=== PATIENT | male | born 1940 | race Caucasian/White ===

== ENCOUNTER → 2016-08-25 | Outpatient (CLI) | payer MEDICARE, BC ==
[~2016-08-25] MED LIST: ALLEGRA30 MG PO; GOOD NEIGHBOR P81 MG PO; HCTZ; SYNTHROID0.05 MG PO; ZOVIRAX51 TP; vitorin
== END ==
LOC: BHSO 09:56
DX: F41.1 Generalized anxiety disorder (principal)

== ENCOUNTER → 2017-01-14 | Outpatient (CLI) | payer MEDICARE, BC | LOC: BHSO 10:06 | DX: F41.1 Generalized anxiety disorder (principal) ==

== ENCOUNTER → 2017-05-14 | Outpatient (CLI) | payer MEDICARE, BC | LOC: BHSO 10:03 | DX: F41.1 Generalized anxiety disorder (principal) | CPT/HCPCS: G0463 ==

== ENCOUNTER → 2017-08-24 | Outpatient (CLI) | payer MEDICARE, BC | LOC: COL.LAB 11:13 | DX: Z01.812 Encounter for preprocedural laboratory examination (principal) ==

== ENCOUNTER → 2017-10-15 | Outpatient (CLI) | payer MEDICARE, BC | LOC: BHSO 11:14 | DX: F33.42 Major depressive disorder, recurrent, in full remission (principal) | CPT/HCPCS: G0463 ==

== ENCOUNTER → 2018-03-24 | Outpatient (CLI) | payer MEDICARE, BC | LOC: BHSO 08:33 | DX: F33.42 Major depressive disorder, recurrent, in full remission (principal) | CPT/HCPCS: G0463 ==

== ENCOUNTER → 2018-09-13 | Outpatient (CLI) | payer MEDICARE, BC | LOC: BHSO 07:58 | DX: F33.42 Major depressive disorder, recurrent, in full remission (principal) | CPT/HCPCS: G0463 ==

== ENCOUNTER 2019-03-02 08:30 | Outpatient (RCR) | payer MEDICARE, BC ==
[2019-02-16 14:40] VITALS: BP 155/80; PULSE 71; TEMP 99.2
[2019-02-16 15:55] VITALS: BP 136/63; PULSE 74; TEMP 99.6
[2019-02-17 10:39] VITALS: BP 157/75; PULSE 60; TEMP 98.6
[2019-02-18 08:52] VITALS: BP 114/67; PULSE 65; TEMP 97.8
[2019-02-19 09:04] VITALS: PULSE 74; TEMP 98.1
[2019-02-20 08:44] VITALS: BP 119/56; PULSE 84; TEMP 97.9
[2019-02-20 08:52] LABS: HEMATOCRIT 38.6 % (42.0-52.0); HEMOGLOBIN 12.4 g/dl (13.5-18.0); MEAN CELL VOLUME 89 fl (80.0-100.0); MEAN CORPUSCULAR HEMOGLOBIN 29 pg (27.0-31.0); MEAN CORPUSCULAR HGB CONC 32 g/dl (33.0-37.0); MEAN PLATELET VOLUME 9.7 fl (7.4-10.4); PLATELET COUNT 283 K/mm3 (130-400); RED BLOOD COUNT 4.32 M/mm3 (4.20-5.60); REDCELL DISTRIBUTION WIDTH-CV 13.2 % (11.5-14.5)
[2019-02-20 09:04] LABS: ALBUMIN 3.3 gm/dL (3.5-5.0); BILIRUBIN,TOTAL 0.7 mg/dL (0.0-1.0); C-REACTIVE PROTEIN 2.6 mg/dL (0.0-0.9); CALCIUM 8.7 mg/dL (8.4-10.2); CREATININE, serum 1.06 (0.66-1.25); POTASSIUM 3.4 mmol/L (3.4-5.0); TOTAL PROTEIN 6.3 gm/dL (6.4-8.2)
[2019-02-20 09:34] LABS: ERYTHROCYTE SEDIMENTATION RATE 13 mm/hr (0-30)
[2019-02-21 10:45] VITALS: BP 129/85; PULSE 70; TEMP 98.2
--- NOTE | 2019-02-21 10:45 | NUR ---
Daptomycin 500 mg IV was administered over 3-5 minutes at 1045 Invanz 1 gm IV in 100 ml NS was administered by pump over 30 minutes starting at 1050.
[2019-02-22 09:02] VITALS: BP 72/54; PULSE 122; TEMP 97.9
[2019-02-23 10:51] VITALS: BP 109/59; PULSE 71; TEMP 97.9
--- NOTE | 2019-02-24 08:50 | NUR ---
with sterile technique right upper arm PICC dressing change done with insertion site cleansed with ChloraPrep 1, chlorhexidine impregnated disc applied, skin prep, StatLock, and Tegaderm applied. No signs or symptoms of IV complications noted. No concerns voiced. Arm wrapped with Reji to protect catheter. Patient to continue with cares in the express unit.
[2019-02-24 09:11] VITALS: BP 148/109; PULSE 68; TEMP 97.7
[2019-02-25 08:30] VITALS: BP 115/55; PULSE 66; TEMP 98.1
[2019-02-26 08:09] VITALS: BP 103/61; PULSE 70; TEMP 98.1
[2019-02-27 08:49] VITALS: BP 108/59; PULSE 70; TEMP 98.2
[2019-02-27 09:03] LABS: HEMOGLOBIN 11.5 g/dl (13.5-18.0); MEAN CELL VOLUME 90 fl (80.0-100.0); MEAN CORPUSCULAR HEMOGLOBIN 29 pg (27.0-31.0); MEAN CORPUSCULAR HGB CONC 32 g/dl (33.0-37.0); MEAN PLATELET VOLUME 9.8 fl (7.4-10.4); PLATELET COUNT 291 K/mm3 (130-400); RED BLOOD COUNT 4.03 M/mm3 (4.20-5.60); REDCELL DISTRIBUTION WIDTH-CV 13.2 % (11.5-14.5)
[2019-02-27 09:22] LABS: HEMATOCRIT 36.3 % (42.0-52.0)
[2019-02-27 09:23] LABS: ALBUMIN 3.2 gm/dL (3.5-5.0); BILIRUBIN,TOTAL 0.9 mg/dL (0.0-1.0); C-REACTIVE PROTEIN 1.6 mg/dL (0.0-0.9); CALCIUM 8.7 mg/dL (8.4-10.2); CREATININE, serum 1.15 (0.66-1.25); POTASSIUM 3.7 mmol/L (3.4-5.0); TOTAL PROTEIN 6.2 gm/dL (6.4-8.2)
[2019-02-27 09:54] LABS: ERYTHROCYTE SEDIMENTATION RATE 14 mm/hr (0-30)
[2019-02-28 08:46] VITALS: BP 106/61; PULSE 66; TEMP 98.1
[2019-03-01 08:47] VITALS: BP 110/64; PULSE 69; TEMP 97.9
[~2019-03-02] VITALS: Ht 177.8 cm; Wt 85.6 kg
[~2019-03-02 08:30] MED LIST changes: +ALLEGRA 60MG TA60 MG PO; -ALLEGRA30 MG PO; +ASPIRIN E.C. 8181 MG PO; +CELLCEPT 5500 MG/TAB PO; +CEPHALEXIN500 M1 PO; +CIPRO 500MG TA500 MG PO; +CUBICIN 500MG500 MG IV; +DESYREL 100MG100 MG PO; +DOXYCYCLINE 10100 MG PO; -GOOD NEIGHBOR P81 MG PO; -HCTZ; +HCTZ 25MG TAB25 MG PO; +INVANZ INJ1 G/VIAL IV; +LIPITOR 80MG80 MG PO; +NORCO 325 MG-51 TAB PO; +PRIL40 PO; -SYNTHROID0.05 MG PO; +SYNTHROID0.05 MG/TA PO
[2019-03-02 08:47] VITALS: BP 104/54; PULSE 77; TEMP 98.1
[2019-03-02 10:45] VITALS: BP 137/79; PULSE 60; TEMP 97.4
--- NOTE | 2019-03-02 12:01 | NUR ---
Pt kerwin PICC removal well. Pt observed for 30 min after removal. RUE soft, dressing C/D/I. Pt discharged per ambulation.
== END 2019-03-02 12:07 | disposition home or self-care (01) ==
LOC: EUO 08:30
PROVIDERS: Internal Medicine Infectious Disease; Nurse Practitioner
DX: M06.9 Rheumatoid arthritis, unspecified (principal); L03.113 Cellulitis of right upper limb; D89.9 Disorder involving the immune mechanism, unspecified
CPT/HCPCS: C1751; C1892; J0878; J1335

== ENCOUNTER → 2019-03-14 | Outpatient (CLI) | payer MEDICARE, BC | LOC: BHSO 07:54 | DX: F33.42 Major depressive disorder, recurrent, in full remission (principal) | CPT/HCPCS: G0463 ==

== ENCOUNTER → 2019-03-22 | Outpatient (CLI) | payer MEDICARE, BC | LOC: COL.RAD 13:42 | DX: J98.11 Atelectasis (principal); R93.89 Abnormal findings on diagnostic imaging of other specified body structures; K80.20 Calculus of gallbladder without cholecystitis without obstruction; N20.0 Calculus of kidney; N28.1 Cyst of kidney, acquired; I25.10 Atherosclerotic heart disease of native coronary artery without angina pectoris ==

== ENCOUNTER 2019-03-31 10:15 | Outpatient (RCR) | payer MEDICARE, BC | END 2019-06-22 | disposition home or self-care (01) | LOC: WSOT | DX: L03.114 Cellulitis of left upper limb (principal) ==

== ENCOUNTER → 2019-04-13 | Outpatient (CLI) | payer MEDICARE, BC | LOC: ZCOL.LAB 15:33 | DX: L03.119 Cellulitis of unspecified part of limb (principal); B39.9 Histoplasmosis, unspecified ==

== ENCOUNTER 2021-04-28 17:57 | Inpatient (IN) | payer MEDICARE, BC ==
[~2021-04-28] VITALS: Ht 175.3 cm; Wt 75.2 kg
[2021-04-28] MEDS ORDERED: REMERON 15M15 MG/TA1 PO (19:47)
[2021-04-28] MEDS ORDERED: LEXAPRO 5MG5 MG PO (19:48)
[2021-04-28] MEDS ORDERED: METROCREAM CREA45 GM TP (19:49)
[2021-04-28] MEDS ORDERED: REVATIO20 MG PO (19:51)
[2021-04-28 20:58] VITALS: BP 107/60; PULSE 87; TEMP 99.3
[2021-04-28 22:34] LABS: BASO % 0.1 % (0.0-2.0); GRAN # 6.2 K/mm3 (1.4-6.5); GRAN % 83.6 % (42.2-75.2); HEMATOCRIT 43.1 % (42.0-52.0); HEMOGLOBIN 14.7 g/dl (13.5-18.0); LYMPH # 0.6 K/mm3 (1.2-3.4); LYMPH % 7.6 % (20.0-51.0); MEAN CELL VOLUME 86 fl (80.0-100.0); MEAN CORPUSCULAR HEMOGLOBIN 29 pg (27-31); MEAN CORPUSCULAR HGB CONC 34 g/dl (33.0-37.0); MEAN PLATELET VOLUME 10.2 fl (7.4-10.4); MONO # 0.6 K/mm3 (0.1-0.6); MONO % 7.8 % (1.7-9.3); PLATELET COUNT 342 K/mm3 (130-400); RED BLOOD COUNT 5.04 M/mm3 (4.20-5.60); REDCELL DISTRIBUTION WIDTH-CV 14.1 % (11.5-14.5)
[2021-04-28 22:59] LABS: CALCIUM 8.6 mg/dL (8.4-10.2); CREATININE, serum 2.31 mg/dL (0.72-1.25); MAGNESIUM 1.9 mg/dL (1.6-2.6)
[2021-04-29 00:50] VITALS: BP 126/60; PULSE 80; TEMP 98.8
--- NOTE | 2021-04-29 01:11 | NUR ---
PT ARRIVED TO FLOOR VIA WHEELCHAIR AT APPROXIMATELY 1900. PT IS ALERT AND ORIENTATED AND IS PLEASANT. ADMISSION COMPLETED. THIS RN PLACED IV IN RIGHT HAND. PATIENT ORIENTATED TO ROOM, VISITING HOURS AND POLICY. PATIENT WILL BE A STANDBY ASSIST DUE TO INCREASE SOB DURING EXERTION, NOTED WHEN AIDE ASSISTED PATIENT TO RESTROOM. PROGRESSED UP TO 3 L NC.
[2021-04-29 04:20] LABS: ARTERIAL BLD GAS O2 SATURATION 90.8 % (92-100); ARTERIAL BLOOD GAS BASE EXCESS -3.5 (-2-2); ARTERIAL BLOOD GAS HCO3 19.1 meq/L (22-26); ARTERIAL BLOOD GAS PCO2 28.5 mmHg (35-45); ARTERIAL BLOOD GAS PO2 59.1 mmHg (80-100); ARTERIAL BLOOD GAS pH 7.44 (7.35-7.45)
--- NOTE | 2021-04-29 04:37 | NUR ---
IV FLUIDS RUNNING AT 100 ML/HR DUE TO PT IV LOCATION AND VEIN BEING IN HAND.
--- NOTE | 2021-04-29 04:38 | NUR ---
THIS RN WAS NOTIFIED BY RT ABOUT PATIENT'S BLOOD GAS RESULTS. RT STATED SHE ALREADY CONTACTED GILLES ABOUT RESULTS, CURRENTLY OK WITH PATIENT REMAINING ON 5L NC. IF NEEDED, PATIENT WILL BE UPGRADED TO HIGH FLOW OXYGEN TO HELP. WILL CONTINUE TO MONITOR.
[2021-04-29 05:13] VITALS: BP 116/58; PULSE 69; TEMP 98.8
--- NOTE | 2021-04-29 06:17 | NUR ---
Pt had an ok night. Pt had to increase to 5L NC from RA overnight. Pt will be having a repeat ABG to see if pt needs to increase to a high flow NC to help with oxygen demands. Pt remained pleasant and took all medications as prescribed. Pt is laying in bed comfortably, all needs are met, call light in reach. Will give report to day shift nurse.
[2021-04-29 07:28] LABS: HEMOGLOBIN 13.7 g/dl (13.5-18.0); MEAN CELL VOLUME 85 fl (80.0-100.0); MEAN CORPUSCULAR HEMOGLOBIN 30 pg (27-31); MEAN CORPUSCULAR HGB CONC 35 g/dl (33.0-37.0); MEAN PLATELET VOLUME 10.3 fl (7.4-10.4); PLATELET COUNT 375 K/mm3 (130-400); REDCELL DISTRIBUTION WIDTH-CV 14.1 % (11.5-14.5)
[2021-04-29 07:46] LABS: C-REACTIVE PROTEIN 23.02 mg/dL (0.00-0.50); CALCIUM 8.3 mg/dL (8.4-10.2); CREATININE, serum 1.8 mg/dL (0.72-1.25)
[2021-04-29 07:49] LABS: POTASSIUM 2.9 mmol/L (3.5-4.5)
[2021-04-29 09:42] LABS: BAND 1 % (0-10); LYMPHOCYTE 11 % (20.0-51.0); NEUTROPHILS 84 % (42.0-75.2); PLATELET ESTIMATE NORMAL (NORMAL)
[2021-04-29 09:53] VITALS: BP 113/98; PULSE 91; TEMP 97.6
--- NOTE | 2021-04-29 10:07 | NUR ---
This RN entered the room to find the patient standing beside his bed, holding his hand straight out. Patient had pulled his IV out and was bleeding. Bleeding stopped quickly and not much blood was lost. This RN started a 20G in the patients left forearm. All medications were administered as ordered. Patient on potassium protocol. Patient sitting on side of the bed eating breakfast.
[2021-04-29 12:21] VITALS: BP 115/81; PULSE 85; TEMP 98.7
[2021-04-29 15:05] LABS: PARTIAL THROMBOPLASTIN TIME 30.7 SECONDS (26.0-37.0)
--- NOTE | 2021-04-29 15:31 | NUR ---
Patient D-dimer came back elevated, Dr. Mckenna notified and a heparin gtt was ordered. A 2nd IV was started in the patient's right forearm, this is where the heparin is infusing at 1,400 units/hr. Patient asked this RN, "Am I going to ?", this RN explained everything to the patient and provided reassurance.
[2021-04-29 15:35] VITALS: BP 115/66; PULSE 73; TEMP 98.7
--- NOTE | 2021-04-29 16:02 | NUR ---
Hydro Generation Manager attempted to contact patient by room phone and was unsucessful. SW then contacted patient's , Peggy (ph#[phone]) to discuss discharge planning. Patient lives in [place] with his and sees Dr. Munoz for primary care. Patient obtains medications from [facility] with no difficulties and does not normally use any DME. Patient is currently requiring six liters of oxygen but does not normally use it. Peggy reports that patient is normally independent with ADLS. Peggy also advised that she is patient's DPOA-HC. JENNIFER asked about discharge plan and Peggy reports she wants to know more about patient's plan of care before deciding on a discharge plan.
[2021-04-29 20:11] VITALS: BP 126/61; PULSE 66; TEMP 98.1
--- NOTE | 2021-04-29 22:00 | NUR ---
PT ASSESSMENT COMPLETED. PT IS PLEASANT AND COOPERATIVE. HEP XA WAS DRAWN BY THIS RN. THIS RN PAUSED THE HEP XA FOR 1 HOUR. WILL RESUME BACK AT 2230. POTASSIUM HUNG AND INFUSING WITH FLUIDS. WILL REDRAW IN MORNING. PT TOOK ALL MEDICATIONS, DENIES PAIN. OXYGEN VIA NC. CALL LIGHT IN REACH. WILL CONTINUE TO MONITOR.
[2021-04-30 00:33] VITALS: BP 128/59; PULSE 66; TEMP 97.3
[2021-04-30 03:42] VITALS: BP 111/72; PULSE 63; TEMP 97.4
[2021-04-30 03:45] LABS: ARTERIAL BLD GAS O2 SATURATION 94.8 % (92-100); ARTERIAL BLD GAS TCO2 CT 20.4; ARTERIAL BLOOD GAS BASE EXCESS -3.1 (-2-2); ARTERIAL BLOOD GAS HCO3 19.5 meq/L (22-26); ARTERIAL BLOOD GAS PCO2 29.5 mmHg (35-45); ARTERIAL BLOOD GAS pH 7.44 (7.35-7.45)
--- NOTE | 2021-04-30 06:07 | NUR ---
PT HAD AN OK NIGHT. PT SLEPT MOST OF NIGHT. HEPARIN RUNNING AT 12 ML/HR. LAB ANDI HEP XA LATE, STILL HAS NOT BEEN RECEIVED AT LAB. 10 BAGS OF POTASSIUM GIVEN DUE TO POTASSIUM OF 2.1. WILL CONTINUE TO MONITOR. PT REMAINS AT 5 L.
[2021-04-30 06:59] LABS: HEMOGLOBIN 13.8 g/dl (13.5-18.0); MEAN CELL VOLUME 88 fl (80.0-100.0); MEAN CORPUSCULAR HEMOGLOBIN 30 pg (27-31); MEAN CORPUSCULAR HGB CONC 34 g/dl (33.0-37.0); MEAN PLATELET VOLUME 10.4 fl (7.4-10.4); PLATELET COUNT 433 K/mm3 (130-400); RED BLOOD COUNT 4.68 M/mm3 (4.20-5.60); REDCELL DISTRIBUTION WIDTH-CV 14.5 % (11.5-14.5)
[2021-04-30 07:18] LABS: C-REACTIVE PROTEIN 12.43 mg/dL (0.00-0.50); CALCIUM 8.2 mg/dL (8.4-10.2); CREATININE, serum 1.18 mg/dL (0.72-1.25); MAGNESIUM 1.8 mg/dL (1.6-2.6); POTASSIUM 3.8 mmol/L (3.5-4.5)
[2021-04-30 08:08] LABS: BAND 3 % (0-10); LYMPHOCYTE 15 % (20.0-51.0); NEUTROPHILS 74 % (42.0-75.2); PLATELET ESTIMATE INCREASED (NORMAL)
[2021-04-30 08:19] VITALS: BP 135/76; PULSE 77; TEMP 97.7
[2021-04-30 09:49] LABS: COLLECTION METHOD CLEAN CATCH
[2021-04-30 09:59] LABS: MUCOUS Present (NOT PRESENT); PH 5 (5-8); SQUAMOUS EPITHELIAL None Seen /hpf (0-10); URINE APPEARANCE Clear (CLEAR/HAZY); URINE BACTERIA None Seen /hpf (NONE SEEN); URINE BILIRUBIN Negative (NEGATIVE); URINE BLOOD Negative (NEGATIVE); URINE COLOR Yellow (YELLOW); URINE GLUCOSE Negative (NEGATIVE); URINE KETONE Negative (NEGATIVE); URINE LEUKOCYTE ESTERASE Negative (NEGATIVE); URINE NITRATE Negative (NEGATIVE); URINE PROTEIN(semi-quant) 1+ (NEGATIVE); URINE RBC 0-2 /hpf (0-2); URINE UROBILINOGEN Negative (NEGATIVE)
--- NOTE | 2021-04-30 11:47 | NUR ---
Heparin infusion rate adjusted. BECCA Rodrigez cosigned. Scheduled medications given. Shift assessment performed. Patient currently requiring 6L of O2 via nasal cannula. States that he has had one episode of diarrhea today. Denies any N/V and is afebrile. Patient to get CT scan later this afternoon. Patient states that he has a slight headache, but states that it is at a manageable level and denies the need for an intervention at this time. Patient denies any further pain, discomfort, or further needs at this itme. Call light in reach.
[2021-04-30 13:21] VITALS: BP 99/70; PULSE 70; TEMP 97.4
--- NOTE | 2021-04-30 14:25 | NUR ---
Patient SpO2 decreased to 88% when sitting more upright and taking MDI. Patient was coughing with loose sounding npc. O2 increased to 7 lpm where SpO2 climbed back to 91.
--- NOTE | 2021-04-30 16:46 | NUR ---
Patient has had an ok day. Currently requiring 6L of O2 via nasal cannula. Heparin gtt DC'd per orders. Lovenox started. SCD's not in place. Patient is up and walking in room independently and SCD's would be a safety hazard. Patient denies any pain, discomfort, or further needs at this time. IV in left forearm DC's, catheter intact, no signs of phlebitis. VSS. Patient A&O. Call light in reach.
[2021-04-30 17:03] VITALS: BP 109/83; PULSE 72; TEMP 98.5
[2021-04-30 20:02] VITALS: BP 123/87; PULSE 65; TEMP 98.4
[2021-05-01 01:08] VITALS: BP 137/67; PULSE 58; TEMP 97.5
[2021-05-01 05:15] VITALS: BP 133/67; PULSE 94; TEMP 97.8
--- NOTE | 2021-05-01 05:36 | NUR ---
Resting quietly, denies pain, no c/o at this time, O2@6L per NC in use, call garcia w/i reach, ambulates w/o issue.
[2021-05-01 06:20] LABS: HEMATOCRIT 37.7 % (42.0-52.0); HEMOGLOBIN 12.9 g/dl (13.5-18.0); MEAN CELL VOLUME 86 fl (80.0-100.0); MEAN CORPUSCULAR HEMOGLOBIN 30 pg (27-31); MEAN CORPUSCULAR HGB CONC 34 g/dl (33.0-37.0); MEAN PLATELET VOLUME 9.9 fl (7.4-10.4); PLATELET COUNT 463 K/mm3 (130-400); RED BLOOD COUNT 4.38 M/mm3 (4.20-5.60); REDCELL DISTRIBUTION WIDTH-CV 14.5 % (11.5-14.5)
[2021-05-01 06:52] LABS: ALBUMIN 2.1 gm/dL (3.4-4.8); BILIRUBIN,TOTAL 0.5 mg/dL (0.2-1.2); C-REACTIVE PROTEIN 5.48 mg/dL (0.00-0.50); CALCIUM 8.1 mg/dL (8.4-10.2); CREATININE, serum 1.11 mg/dL (0.72-1.25); MAGNESIUM 1.7 mg/dL (1.6-2.6); POTASSIUM 3.8 mmol/L (3.5-4.5); TOTAL PROTEIN 5.6 gm/dL (6.2-8.1)
[2021-05-01 08:36] VITALS: BP 128/60; PULSE 66; TEMP 98.2
[2021-05-01 10:45] VITALS: BP 130/60; PULSE 69; TEMP 98.1
[2021-05-01 16:29] VITALS: BP 130/74; PULSE 66; TEMP 97.8
[2021-05-01 19:35] VITALS: BP 154/110; PULSE 65; TEMP 98.2
--- NOTE | 2021-05-01 20:52 | NUR ---
Patient sitting up in bed upon enter the room. Patient A/Ox4. Patient denies any pain or discomfort. Patient currently on 5L oxygen via NC. Patient reports some SOB with ambulation. No c/o SOB while at rest. Assisted patient to the bathroom to void. Stand-by assist provided. Ice water provided per patient request. All scheduled meds given per JUL. Call light in reach. Will continue to monitor.
[2021-05-02] VITALS (318 sets, daily range): BP systolic 118–145; BP diastolic 69–97; PULSE 62–77; TEMP 97.5–98.6; O2SAT 78–100
--- NOTE | 2021-05-02 06:10 | NUR ---
Patient remains on 5L oxygen via high flow NC most of night. Patient on 6L oxygen this morning. Patient resting in bed with eyes closed at this time. No acute distress noted. Call light in reach.
[2021-05-02 07:34] LABS: HEMATOCRIT 39.4 % (42.0-52.0); HEMOGLOBIN 13.1 g/dl (13.5-18.0); MEAN CELL VOLUME 88 fl (80.0-100.0); MEAN CORPUSCULAR HEMOGLOBIN 29 pg (27-31); MEAN CORPUSCULAR HGB CONC 33 g/dl (33.0-37.0); MEAN PLATELET VOLUME 10.3 fl (7.4-10.4); PLATELET COUNT 418 K/mm3 (130-400); RED BLOOD COUNT 4.48 M/mm3 (4.20-5.60); REDCELL DISTRIBUTION WIDTH-CV 14.5 % (11.5-14.5)
--- NOTE | 2021-05-02 07:56 | NUR ---
PLACED PT ON AIRVO 60L 71%. SPO2 90%. RN NOTIFIED
[2021-05-02 08:01] LABS: CREATININE, serum 0.95 mg/dL (0.72-1.25); POTASSIUM 4.1 mmol/L (3.5-4.5)
--- NOTE | 2021-05-02 09:00 | NUR ---
PT ALERT AND ORIENTED. LUNGS CLEAR TO UPPER LOBES AND DIMINISHED BASES BILATERALLY. PT ABLE TO AMBULATE TO RESTROOM, DESATURATIONS NOTED. RESPIRATORY THERAPY NOTIFIED, ENCOURAGE USE OF BEDSIDE COMMODE AND URINAL FOR TIME BEING TO PROMOTE ADEQUATE OXYGENATION. PT S1,S2 SOUNDS AUSUCLTATED. PT HAS 2+ PULSES IN ALL EXTREMITIES. PT BREAKFAST DELIVERED AND CALL LIGHT WITHIN REACH. PT ABLE TO EXPRESS NEEDS AND UNDERSTAND EDUCATION.
--- NOTE | 2021-05-02 09:03 | NUR ---
PT AMBULATED TO RESTROOM, SATURATION DOWN TO 80%. APPROXIMATELY 3 MINUTES TO RETURN TO 92% ON AIRVO AFTER RETURNING TO BED.
[2021-05-02 09:30] LABS: LYMPHOCYTE 9 % (20.0-51.0); NEUTROPHILS 84 % (42.0-75.2); PLATELET ESTIMATE INCREASED (NORMAL)
[2021-05-02 09:31] LABS: OVALOCYTES 1+
--- NOTE | 2021-05-02 10:00 | NUR ---
PT , ALIZA AND DAUGHTER CALLED FOR UPDATE. VERBAL CONSENT RECEIVED BY PT. PRIVACY CODE GIVEN FOR FUTURE UPDATES. PT STATUS UPDATED TO BEST OF ABILITY.
--- NOTE | 2021-05-02 11:19 | NUR ---
PT AMBULATED TO RESTROOM, DESATURATION TO 80%. APPROXIMATELY 5 MINUTES TO RETURN TO 90%. RESPIRATORY THERAPY NOTIFIED.
--- NOTE | 2021-05-02 13:00 | NUR ---
Patient transferred to ICU #5 from medical unit. Report received from BECCA Figueroa. Patient alert & oriented. Able to move self to ICU bed. On NRB mask for transfer & placed on AirVo 60L/80% upon arrival to ICU. Denies pain. Oriented to room & RN. Call light within reach. Will continue to monitor.
--- NOTE | 2021-05-02 13:07 | NUR ---
REPORT GIVEN TO JOANA ICU NURSE. PT TRANSFERRED TO ICU VIA BED, RESPIRATORY THERAPY CONTACTED FOR TRANSFER.
--- NOTE | 2021-05-02 15:19 | NUR ---
UPDATE CALLED TO MADYSON, DAUGHTER AND , LAIZA. BOTH STATED PRIOR COMMUNICATION HAD BE RECEIVED OF PT CHANGE OF UNIT.
--- NOTE | 2021-05-02 18:30 | NUR ---
Completed Zoom call with family. Patient alert, but had trouble hearing. Denies pain or sob. Continues on AirVo 60L/80%. 1899 - report to BECCA Noel.
[2021-05-03] VITALS (636 sets, daily range): BP systolic 93–142; BP diastolic 74–97; PULSE 53–85; TEMP 97.8–98.8; O2SAT 60–100
[2021-05-03 08:15] LABS: MEAN CELL VOLUME 87 fl (80.0-100.0); MEAN CORPUSCULAR HGB CONC 34 g/dl (33.0-37.0); MEAN PLATELET VOLUME 10.1 fl (7.4-10.4); RED BLOOD COUNT 5.16 M/mm3 (4.20-5.60); REDCELL DISTRIBUTION WIDTH-CV 14.5 % (11.5-14.5)
[2021-05-03 08:19] LABS: HEMOGLOBIN 15.2 g/dl (13.5-18.0); MEAN CORPUSCULAR HEMOGLOBIN 29 pg (27-31); PLATELET COUNT 581 K/mm3 (130-400)
[2021-05-03 08:35] LABS: ALBUMIN 2.3 gm/dL (3.4-4.8); BILIRUBIN,TOTAL 1.2 mg/dL (0.2-1.2); C-REACTIVE PROTEIN 9.06 mg/dL (0.00-0.50); CALCIUM 8.5 mg/dL (8.4-10.2); CREATININE, serum 0.97 mg/dL (0.72-1.25); MAGNESIUM 1.5 mg/dL (1.6-2.6); POTASSIUM 3.6 mmol/L (3.5-4.5); TOTAL PROTEIN 6.6 gm/dL (6.2-8.1)
[2021-05-03 09:22] LABS: BAND 1 % (0-10); NEUTROPHILS 89 % (42.0-75.2)
[2021-05-03 09:23] LABS: BURR CELLS 1+; OVALOCYTES 1+; PLATELET ESTIMATE INCREASED (NORMAL)
[2021-05-03 09:25] LABS: LYMPHOCYTE 7 % (20.0-51.0)
--- NOTE | 2021-05-03 10:00 | NUR ---
Family of Mr. Arrington came, his , son, and duaghter in law. Family spoke with Dr. Montelongo. See notes. Family is able to sit bedside with PT as they discuss the next steps in his care.
--- NOTE | 2021-05-03 12:00 | NUR ---
Family left PTs room and had a brief meeting with this nurse. Family stated that Mr. Arrington's wishes are that he is not to be intubated or put on BIPAP. With the PTs suspected decline and worsening confusion , that they would want him to remain comfortable with medication intervention such as morphine, but would like to be a DNR/DNI. At this time, the PT agrees with these measures. Physician has been notified about change in code status.
[2021-05-03 12:33] LABS: ARTERIAL BLD GAS O2 SATURATION 91.4 % (92-100); ARTERIAL BLOOD GAS HCO3 20.2 meq/L (22-26); ARTERIAL BLOOD GAS PCO2 27.9 mmHg (35-45); ARTERIAL BLOOD GAS pH 7.48 (7.35-7.45)
[2021-05-04] VITALS (657 sets, daily range): BP systolic 112–149; BP diastolic 62–92; PULSE 46–58; TEMP 97.2–98.1; O2SAT 70–100
[2021-05-04 03:39] LABS: HEMATOCRIT 37.9 % (42.0-52.0); MEAN CELL VOLUME 89 fl (80.0-100.0); MEAN CORPUSCULAR HGB CONC 33 g/dl (33.0-37.0); RED BLOOD COUNT 4.26 M/mm3 (4.20-5.60); REDCELL DISTRIBUTION WIDTH-CV 14.6 % (11.5-14.5)
[2021-05-04 03:42] LABS: HEMOGLOBIN 12.3 g/dl (13.5-18.0); MEAN CORPUSCULAR HEMOGLOBIN 29 pg (27-31); PLATELET COUNT 424 K/mm3 (130-400)
[2021-05-04 03:53] LABS: CALCIUM 7.9 mg/dL (8.4-10.2); CREATININE, serum 0.97 mg/dL (0.72-1.25); POTASSIUM 4.3 mmol/L (3.5-4.5)
[2021-05-04 04:35] LABS: BASOPHIL 3 % (0-2); EOSINOPHIL 1 % (0-4); HYPOCHROMIA 1+; LYMPHOCYTE 6 % (20.0-51.0); METAMYELOCYTE 1 % (0-0); NEUTROPHILS 81 % (42.0-75.2); PLATELET ESTIMATE INCREASED (NORMAL)
[2021-05-04 04:37] LABS: BURR CELLS 2+; OVALOCYTES 2+
--- NOTE | 2021-05-04 10:01 | NUR ---
REPORT RECEIVED FROM BECCA TEE. PT APPEARS TO BE SLEEPING AT THIS TIME. NO S/S DISCOMFORT. WEARING AIRVO AT 60L AND 80%; SPO2 AT 99%. 20 G IV IN LEFT FA. 20 G IV IN R FA. NO MEDICATION INFUSING AT THIS TIME. CODE STATUS REVIEVED; DNR\DNI. VSS.
--- NOTE | 2021-05-04 10:09 | NUR ---
PT ASSESSED AT THIS TIME. PT REPORTS NO PAIN OR DISCOMFORT. DOES FEEL SHORT OF BREATH WHEN TRYING TO SPEAK. WHEN PT TOOK AM PILLS HE DID HAVE SOME COUGHING WHEN SIPPING WATER. SPO2 DROPPED TO MID 80'S AND TOOK ABOUT 5 MINUTES TO RECOVER TO THE LOW 90'S. WILL KEEP PT NPO UNTIL PHYSICIAN ROUNDS. PT VOICES UNDERSTANDING FOR BEING KEPT NPO AT THIS TIME. PT STATES THAT HE FEELS VERY TIRED AND LETHARGIC. REQUESTS THAT LIGHTS BE TURNED DOWN SO THAT HE CAN GO BACK TO SLEEP.
--- NOTE | 2021-05-04 12:43 | NUR ---
THIS NURSE SPOKE WITH HOSPITALIST AND LET HIM KNOW THAT PT IS HAVING DIFFICULTY WITH SWALLOWING. OFTEN COUGHS WHEN TAKING SIPS OF WATER. PROVIDER WOULD LIKE PT KEPT NPO FOR NOW AND WILL ORDER SPEECH EVAL.
--- NOTE | 2021-05-04 16:16 | NUR ---
PT ASSISTED WITH SETTING UP HEADPHONES AND PHONE SO THAT HE IS ABLE TO SPEAK WITH AND HEAR FAMILY. PT/FAMILY ABLE TO SPEAK FOR APPROX. 10 MINUTES. PT STATES HE DOES NOT HAVE ANY PAIN AND DOES NOT OFFER ANY COMPLAINTS AT THIS TIME. URINAL OFFERED; PT DENIES NEEDING TO VOID.
--- NOTE | 2021-05-04 18:42 | NUR ---
PT GIVEN MOUTH SWABS AND MOUTH MOISTURIZER TO MOISTEN MOUTH DUE TO BEING NPO. PT WILL BE NPO UNTIL SPEECH IS ABLE TO DO A SWALLOW EVAL TOMORROW MORNING. PT HAS VERBALIZED UNDERSTANDING TO WHY HE IS NPO. PT'S SON, MARANDA IS AT THE BEDSIDE AT THIS TIME. THIS VISIT WAS OKAYED BY DR. LYNN. PT OFFERS NO COMPLAINTS AND HAS NO S/S DISCOMFORT. ZOSYN INFUSING THROUGH LEFT FA. PT WAS ABLE TO VOID WITH ASSISTANCE USING THE URINAL. CONTINUES TO WEAR AIRVO AT 60L AND 80%. VSS.
[2021-05-05] VITALS (540 sets, daily range): BP systolic 122–151; BP diastolic 68–87; PULSE 47–64; TEMP 97.5–98.7; O2SAT 68–100
[2021-05-05 05:08] LABS: ARTERIAL BLD GAS O2 SATURATION 97.4 % (92-100); ARTERIAL BLD GAS TCO2 CT 19.3; ARTERIAL BLOOD GAS HCO3 18.4 meq/L (22-26); ARTERIAL BLOOD GAS PO2 100.6 mmHg (80-100); ARTERIAL BLOOD GAS pH 7.41 (7.35-7.45)
[2021-05-05 05:10] LABS: BASO % 0.1 % (0.0-2.0); EOS % 0.1 % (0.0-4.0); GRAN # 10.5 K/mm3 (1.4-6.5); GRAN % 85.3 % (42.2-75.2); HEMATOCRIT 42.7 % (42.0-52.0); HEMOGLOBIN 13.6 g/dl (13.5-18.0); LYMPH # 0.7 K/mm3 (1.2-3.4); LYMPH % 5.4 % (20.0-51.0); MEAN CELL VOLUME 92 fl (80.0-100.0); MEAN CORPUSCULAR HEMOGLOBIN 29 pg (27-31); MEAN CORPUSCULAR HGB CONC 32 g/dl (33.0-37.0); MEAN PLATELET VOLUME 10.4 fl (7.4-10.4); MONO % 7.7 % (1.7-9.3); PLATELET COUNT 505 K/mm3 (130-400); RED BLOOD COUNT 4.64 M/mm3 (4.20-5.60); REDCELL DISTRIBUTION WIDTH-CV 14.5 % (11.5-14.5)
[2021-05-05 05:23] LABS: CALCIUM 8.3 mg/dL (8.4-10.2); CREATININE, serum 0.92 mg/dL (0.72-1.25); MAGNESIUM 1.9 mg/dL (1.6-2.6); POTASSIUM 4.3 mmol/L (3.5-4.5)
--- NOTE | 2021-05-05 07:00 | NUR ---
Report received from BECCA Noel.Pt in bed resting, on bipap with eyes closed, will continue to monitor
--- NOTE | 2021-05-05 09:30 | NUR ---
Assessment charted. Pt able to transition from bipap to airvo well and maintaining oxygen saturations as high at 99% on 60L/82%. Speech therapy here to see pt at this time for evaluation. Reginald saw patient earlier and recommended floor transfer today as long as continues to do well. Resting in bed, bed bath assisted and pt able to do some care, does not appear short of breath or working hard to breath. INT to RFA and LFA. Will continue to monitor.
--- NOTE | 2021-05-05 09:30 | NUR ---
Sherry HUDSON and I made a call to the patient's , Kenya. She was on speaker phone with other family members during our conversation. The family confirmed the patient is DNR/DNI but they are not ready for hospice services and will be happy to have information about rehab options. The family has been in contact with Dr. Montelongo and are hopeful that the patient will improve but also understand he will require additional help whenever he is stable enough for discharge. We provided the family our contact information, if more questions arise. We did not talk directly to Jama, as he is still in isolation and HFNC O2.
--- NOTE | 2021-05-05 10:26 | NUR ---
Update provided to family, ST states pt is clear to eat
--- NOTE | 2021-05-05 13:21 | NUR ---
heat treat worker spoke with patient's and children and provided all options for [facility], acute inpatient rehab and custodial. Worker spoke with Dr Montelongo and will continue to follow and provide referrals as ordered. Family verbalized understanding and their desire for patient to receive the maximum therapy level that he qualifies for.
--- NOTE | 2021-05-05 15:11 | NUR ---
Update provided to family, reviewed doctors instructions and plan of care and transfer to medical floor when availability. Answered questions. Will continue to monitor.
--- NOTE | 2021-05-05 18:34 | NUR ---
Pt has done well over shift, able to titrate down on AIRVO to 60L/70% and maintaining saturations at 98% while resting. Denies needs, eating some and drinking well. Will give report to medical nurse who will resume care and will transport pt up via bed with all bleongings.
--- NOTE | 2021-05-05 22:25 | NUR ---
THIS RN WAS CALLED BY TELE ABOUT PATIENT BRADYING DOWN INTO 30'S FOR HEART RATE. THIS RN CHECKED ON PATIENT, TOOK VITALS. PULSE 41, BP 131/65 SPO2 AT 97%. JEFF CAMPOVERDE NOTIFIED. EKG ORDERED. THIS RN CALLED RESPIRATORY FOR EKG.
--- NOTE | 2021-05-05 23:41 | NUR ---
PT IS LAYING IN BED. PLEASANT AND COOPERATIVE. DENIES PAIN. DENIES ANY NEEDS AT THIS TIME. CALL LIGHT IN REACH, NO OTHER NEEDS
[2021-05-06 00:19] VITALS: BP 145/75; PULSE 50; TEMP 97.5
[2021-05-06 05:21] VITALS: BP 141/70; PULSE 84; TEMP 97.4
--- NOTE | 2021-05-06 07:32 | NUR ---
REPORT RECEIVED FROM MILAD RN, PT CURRENTLY RESTING IN BED DENEIS ANY NEEDS AT THIS TIME
[2021-05-06 07:41] VITALS: BP 133/68; PULSE 67; TEMP 97.6
[2021-05-06 12:21] VITALS: BP 125/71; PULSE 61; TEMP 98.2
[2021-05-06 16:03] VITALS: BP 125/63; PULSE 79; TEMP 97.9
--- NOTE | 2021-05-06 18:56 | NUR ---
PT A/O, COOPERATIVE WITH CARE, REAMIN ON 60L AIRVO 80%FI02,TOLARATING MECH SOFT DIET. DENEIS ANY NEEDS AT THIS TIME. DAUGHTER CALLLED AND UPDATED ON CPOC
[2021-05-06 20:24] VITALS: BP 133/72; PULSE 56; TEMP 97.6
[2021-05-07] VITALS (8 sets, daily range): BP systolic 122–144; BP diastolic 58–89; PULSE 51–88; TEMP 97.1–98.2
--- NOTE | 2021-05-07 02:09 | NUR ---
PT IS PLEASANT AND COOOPERATIVE. PT ON AIRVO 60 L. PT TOOK MEDICATIONS PRESCRIBED. DENIES PAIN.
--- NOTE | 2021-05-07 06:18 | NUR ---
PT HAD AN UNEVENTFUL NIGHT. PT REMAINS ON 60 L AIRVO. PT WAS ABLE TO WEAR BIPAP A FEW HOURS UNTIL APPROXIMATELY 0300 THIS AM. THIS RN CAME WHEN PT CALLED TO FIND BIPAP OFF, PT STATED HE DID NOT WANT TO WEAR IT FURTHER AT THIS TIME. AIRVO PLACED. PT SATISFIED. ALL MEDICATIONS GIVEN, ALL NEEDS MET. NO OTHER NEEDS AT THIS TIME.
[2021-05-07 06:57] LABS: BASO % 0.1 % (0.0-2.0); EOS % 0.4 % (0.0-4.0); GRAN # 7.2 K/mm3 (1.4-6.5); GRAN % 75.5 % (42.2-75.2); HEMATOCRIT 38.6 % (42.0-52.0); HEMOGLOBIN 12.7 g/dl (13.5-18.0); LYMPH # 0.9 K/mm3 (1.2-3.4); LYMPH % 9.3 % (20.0-51.0); MEAN CELL VOLUME 89 fl (80.0-100.0); MEAN CORPUSCULAR HEMOGLOBIN 29 pg (27-31); MEAN CORPUSCULAR HGB CONC 33 g/dl (33.0-37.0); MEAN PLATELET VOLUME 10.5 fl (7.4-10.4); MONO # 1.3 K/mm3 (0.1-0.6); MONO % 13.5 % (1.7-9.3); PLATELET COUNT 417 K/mm3 (130-400); RED BLOOD COUNT 4.33 M/mm3 (4.20-5.60); REDCELL DISTRIBUTION WIDTH-CV 14.1 % (11.5-14.5)
[2021-05-07 07:01] LABS: CALCIUM 7.9 mg/dL (8.4-10.2); CREATININE, serum 0.89 mg/dL (0.72-1.25); POTASSIUM 4.1 mmol/L (3.5-4.5)
--- NOTE | 2021-05-07 08:20 | NUR ---
Assessment complete. Pt sitting up in bed eating pudding. Denies pain. Pt is on Airvo at 60L/80%. Pt denies needs at this time. Call light within reach.
--- NOTE | 2021-05-07 15:48 | NUR ---
Follow up visit from the trial management associate. No needs right now
--- NOTE | 2021-05-07 21:00 | NUR ---
PT RESTING IN BED. O2 PER AIRVO. PT DENIES RESP DISTRESS AT THIS TIME. CONTINUES DROPLET ISOLATION.
[2021-05-08 05:16] VITALS: BP 146/841; PULSE 55; TEMP 97.6
[2021-05-08 07:39] LABS: CALCIUM 7.9 mg/dL (8.4-10.2); CREATININE, serum 0.84 mg/dL (0.72-1.25); POTASSIUM 4.1 mmol/L (3.5-4.5)
[2021-05-08 07:40] LABS: BASO % 0.1 % (0.0-2.0); EOS # 0.1 K/mm3 (0.0-0.7); EOS % 0.7 % (0.0-4.0); GRAN # 6.4 K/mm3 (1.4-6.5); GRAN % 73.7 % (42.2-75.2); HEMATOCRIT 43.1 % (42.0-52.0); LYMPH # 0.9 K/mm3 (1.2-3.4); LYMPH % 10.5 % (20.0-51.0); MEAN CELL VOLUME 91 fl (80.0-100.0); MEAN CORPUSCULAR HEMOGLOBIN 29 pg (27-31); MEAN CORPUSCULAR HGB CONC 33 g/dl (33.0-37.0); MEAN PLATELET VOLUME 11.1 fl (7.4-10.4); MONO # 1.2 K/mm3 (0.1-0.6); MONO % 13.8 % (1.7-9.3); RED BLOOD COUNT 4.76 M/mm3 (4.20-5.60)
[2021-05-08 07:42] LABS: PLATELET COUNT 305 K/mm3 (130-400)
[2021-05-08 08:15] VITALS: BP 134/71; PULSE 56; TEMP 98.5
--- NOTE | 2021-05-08 08:30 | NUR ---
Assessment complete. Pt resting in bed. Denies pain or shortness of breath. Airvo at 60L/69%. Pt denies needs at this time. Call light within reach.
[2021-05-08 12:06] VITALS: BP 135/71; PULSE 61; TEMP 99.1
[2021-05-08 16:38] VITALS: BP 113/71; PULSE 83; TEMP 98.3
--- NOTE | 2021-05-08 18:19 | NUR ---
Report recieved from BECCA So. Patient currently on Airvo 60L at 69%, denies any pain, discomfort, or SOA. Call light in reach.
[2021-05-08 20:21] VITALS: BP 121/62; PULSE 67; TEMP 97.9
--- NOTE | 2021-05-08 21:46 | NUR ---
PT IS SITTING UP IN BED. RT JUST LEFT ROOM, WILL PLACE BIPAP ON AT APPROXIMATELY 2300. PT IS STILL ON 60 L AIRVO. PT IS PLEASANT AND ALERT AND ORIENTATED. PT DENIES ANY SOB, N/V/D OR PAIN. CALL LIGHT IS IN REACH, NO OTHER NEEDS AT THIS TIME.
[2021-05-08 23:16] VITALS: BP 155/85; PULSE 56; TEMP 98.1
[2021-05-09 04:36] VITALS: BP 141/72; PULSE 50; TEMP 98.4
--- NOTE | 2021-05-09 05:59 | NUR ---
PT HAD AN UNEVENTFUL NIGHT. PT TOLERATED BIPAP FOR A FEW HOURS OVERNIGHT. PT IS CURRENTLY ON 60 L 60% FIO2. PT DENIES PAIN, SOB OR ANY COMPLAINTS. CALL LIGHT IN REACH.
[2021-05-09 08:11] VITALS: BP 122/89; PULSE 50; TEMP 97.3
[2021-05-09 11:43] VITALS: BP 109/54; PULSE 72; TEMP 97.5
[2021-05-09 15:57] VITALS: BP 115/99; PULSE 74; TEMP 97.6
--- NOTE | 2021-05-09 18:00 | NUR ---
Scheduled medications given. Shift assessment performed. Patient denies any pain, discomfort, or further needs at this time. Currently requiring 60L at 60% on airvo. VSS. Patient alert and oriented, has been intermittently confused this evening. Patient pulled out IV. New IV started in patient's right forearm. Call light in reach.
[2021-05-09 19:27] VITALS: BP 150/54; PULSE 94; TEMP 98
[2021-05-10] VITALS (7 sets, daily range): BP systolic 122–135; BP diastolic 61–87; PULSE 53–66; TEMP 97.2–98
--- NOTE | 2021-05-10 01:41 | NUR ---
ASSESSMENT COMPLETE FOR THIS SHIFT. PT COOPERATIVE WITH CARES. PT RESTING IN BED WATCHING TV EARIER IN SHIFT. PT DENIES PAIN, PALPITATIONS, OR DIZZINESS. PT HAS DYSPNEA ON EXERTION. PT STATES HE HAS NO OTHER NEEDS AT THIS TIME. CALL LIGHT WITHIN REACH.
--- NOTE | 2021-05-10 09:48 | NUR ---
Scheduled medications given. Shift assessment performed. Patient currently requiring 60L of O2 at 60% via airvo. Denies any pain, discomfort, SOA, or further needs at this time. Patient alert, but only partially oriented. Patient has not IV access. Patient pulled IV out attempting to go to the bathroom. VSS. Call light in reach. Fall percautions in place.
--- NOTE | 2021-05-10 11:47 | NUR ---
Patient on K+ protocol. Labs not ordered for today. Angelito rechecking tmrw AM.
--- NOTE | 2021-05-10 18:39 | NUR ---
Patient has had an uneventful day. VSS. Patient alert, but only partially oriented. Intermittent confusion noted. New IV started in patient's right wrist. Currenlty requiring 60L at 60% on airvo. Call light in reach. Fall percautions in place.
[2021-05-11 03:40] VITALS: BP 125/83; PULSE 52; TEMP 91.5
--- NOTE | 2021-05-11 03:48 | NUR ---
ASSESSMENT COMPLETE FOR THIS SHIFT. PT WAS SHOUTING I'M DONE, I WAS DONNING PPE TO ENTER HIS ROOM TO ASSESS AND GIVE HIS EVENING MEDS. AFTER DONNING PPE I WENT IN TO SEE WHAT THE PT WAS TALKING ABOUT. PT HAD BEEN PLACED ON A BED MARIE AND WAS DONE WITH HIS BOWEL MOVEMENT. I REMOVED THE BED MARIE AND CLEANED THE PT UP. PT DID GET WASTE IN HIS GOWN AND LINEN AND I CALLED THE AID FOR ASSISTANCE WITH FULL LINEN CHANGE. PT ASSISTED BACK TO CLEAN BED WITH CLEAN GOWN. PT VERY THANKFUL. PT DENIED PAIN, PALPITATIONS, SOB OR DIZZINESS. LATER TONIGHT, PT'S BED ALARM WHEN OFF. PT HAD GOTTEN UP TO THE BATHROOM ON HIS OWN TO HAVE A BOWEL MOVEMENT. AID HAD GOTTEN TO THE ROOM, BY THE TIME I HAD GOTTEN THERE. NO FALLS REPORTED AND PT WAS A&O X4 UPON ASSESSMENT. AID REMAINED WITH PT UNTIL HE RETURNED TO BED. PT STATED HE HAD NO OTHER NEEDS AT THAT TIME. CALL LIGHT WITHIN REACH.
[2021-05-11 06:56] LABS: CALCIUM 7.9 mg/dL (8.4-10.2); CREATININE, serum 0.74 mg/dL (0.72-1.25)
[2021-05-11 08:00] VITALS: BP 145/70; PULSE 54; TEMP 98.4
[2021-05-11 08:35] LABS: HEMATOCRIT 39.8 % (42.0-52.0); HEMOGLOBIN 13.1 g/dl (13.5-18.0); MEAN CELL VOLUME 89 fl (80.0-100.0); MEAN CORPUSCULAR HEMOGLOBIN 29 pg (27-31); MEAN CORPUSCULAR HGB CONC 33 g/dl (33.0-37.0); MEAN PLATELET VOLUME 11.6 fl (7.4-10.4); PLATELET COUNT 288 K/mm3 (130-400); RED BLOOD COUNT 4.46 M/mm3 (4.20-5.60); REDCELL DISTRIBUTION WIDTH-CV 13.8 % (11.5-14.5)
[2021-05-11 08:51] LABS: BAND 1 % (0-10); LYMPHOCYTE 16 % (20.0-51.0); NEUTROPHILS 72 % (42.0-75.2); OVALOCYTES 1+; PLATELET ESTIMATE NORMAL (NORMAL)
[2021-05-11 11:33] VITALS: BP 124/61; PULSE 66; TEMP 98.2
[2021-05-11 16:00] VITALS: BP 118/64; PULSE 66; TEMP 98.1
[2021-05-11 20:00] VITALS: BP 103/66; PULSE 62; TEMP 98.1
[2021-05-12 00:19] VITALS: BP 135/88; PULSE 60; TEMP 97.3
[2021-05-12 04:02] VITALS: BP 127/75; PULSE 55; TEMP 97.8
--- NOTE | 2021-05-12 06:45 | NUR ---
ASSESSMENT COMPLETE FOR THIS SHIFT. PT COOPERATIVE WITH CARES. PT RESTING IN BED WATCHING TV EARIER IN SHIFT. PT DENIED PAIN, PALPITATIONS, SOB OR DIZZINESS. PT CONTINUES WITH PITTING EDEMA TO THE LOWER ARMS AND FINGERS. PT STATED HE HAD NO OTHER NEEDS AT THIS TIME. CALL LIGHT WITHIN REACH.
[2021-05-12 08:26] VITALS: BP 125/69; PULSE 57; TEMP 97.4
--- NOTE | 2021-05-12 10:54 | NUR ---
The patient is requiring 55 liters of oxygen. The hospitalist would like a referral to [facility]. JNENIFER contacted and faxed a referral to Lux at [facility]. Awaiting screen. JENNIFER contacted and updated the patient's , Peggy. Peggy is in agreement to [facility].
[2021-05-12 11:29] VITALS: BP 110/68; PULSE 71; TEMP 97.4
[2021-05-12 17:03] VITALS: BP 125/65; PULSE 59; TEMP 97.8
[2021-05-12 20:26] VITALS: BP 106/58; PULSE 55; TEMP 97.6
--- NOTE | 2021-05-12 22:03 | NUR ---
Assessment completed, alert/oriented, vital signs stable, denies pain or discomfort, no resp.difficulty at rest/ remains on Airvo 55L/62%, lungs CTA/ diminished throughout, heart RRR/distal pulses are palpable, patient sitting up in bed, evening meds given, I emptied his urinal and he denies other needs at this time, call light in reach
[2021-05-13 00:39] VITALS: BP 120/74; PULSE 49; TEMP 97.4
[2021-05-13 04:13] VITALS: BP 135/73; PULSE 52; TEMP 97.3
[2021-05-13 08:42] VITALS: BP 128/66; PULSE 62; TEMP 97.8
--- NOTE | 2021-05-13 10:39 | NUR ---
Lux, at [facility], reports that it does not look like they will have a bed today. SW updated the patient's , Peggy, and informed her how they may have a bed available if a day or two. Peggy verbalized understanding was in agreement to the plan. SW updated the clinical team.
[2021-05-13 12:22] VITALS: BP 102/62; PULSE 66; TEMP 98.2
[2021-05-13 16:59] VITALS: BP 125/62; PULSE 79; TEMP 97.7
[2021-05-13 20:07] VITALS: BP 110/59; PULSE 71; TEMP 98.1
--- NOTE | 2021-05-13 22:00 | NUR ---
Patient is sitting in bed with airvo in place 50L 80%, Telemetry monitoring NSR, Alert and oriented x 4, VSS, denies pain, nausea, vomiting. Assessment completed, meds provided. No further needs at this time. Call light within reach.
[2021-05-14 00:57] VITALS: BP 107/67; PULSE 65; TEMP 99
[2021-05-14 04:32] VITALS: BP 121/67; PULSE 89; TEMP 98.4
[2021-05-14 06:42] LABS: HEMATOCRIT 41.9 % (42.0-52.0); HEMOGLOBIN 13.8 g/dl (13.5-18.0); MEAN CELL VOLUME 90 fl (80.0-100.0); MEAN CORPUSCULAR HEMOGLOBIN 30 pg (27-31); MEAN CORPUSCULAR HGB CONC 33 g/dl (33.0-37.0); MEAN PLATELET VOLUME 11.5 fl (7.4-10.4); PLATELET COUNT 226 K/mm3 (130-400); RED BLOOD COUNT 4.67 M/mm3 (4.20-5.60)
[2021-05-14 06:54] LABS: C-REACTIVE PROTEIN 2.7 mg/dL (0.00-0.50); CALCIUM 7.8 mg/dL (8.4-10.2); CREATININE, serum 0.84 mg/dL (0.72-1.25); POTASSIUM 3.9 mmol/L (3.5-4.5)
--- NOTE | 2021-05-14 07:00 | NUR ---
Report received from BECCA Zhu. Pt in bed resting, AIRVO in place, denies needs, will continue to monitor.
[2021-05-14 07:54] LABS: BAND 1 % (0-10); LYMPHOCYTE 6 % (20.0-51.0); NEUTROPHILS 81 % (42.0-75.2); OVALOCYTES 1+; PLATELET ESTIMATE NORMAL (NORMAL)
[2021-05-14 07:55] LABS: SCHISTOCYTES 1+
[2021-05-14 08:52] VITALS: BP 146/64; PULSE 82; TEMP 97.9
--- NOTE | 2021-05-14 10:30 | NUR ---
Assessment charted. at bedside, Dr. Romero just visited with them, denies needs, waiting on bed at [facility]. Denies pian, AIRVO at 40L/70%. Denies pain, alert and oriented, will conitnue to monitor.
--- NOTE | 2021-05-14 10:44 | NUR ---
Lux, at [facility], reports that they will not be able to take any admits today. The clinical team was updated.
[2021-05-14 12:18] VITALS: BP 121/75; PULSE 73; TEMP 99.2
--- NOTE | 2021-05-14 12:55 | NUR ---
followed up with patient. No needs right now.
[2021-05-14 16:01] VITALS: BP 119/86; PULSE 68; TEMP 97.7
--- NOTE | 2021-05-14 18:30 | NUR ---
Pt has done well over shift, resting often between disturbances. Denies pain, able to titrate down to 4L HFNC. Denies needs, will give report to nightshift nurse who will resume care.
--- NOTE | 2021-05-14 19:50 | NUR ---
Pt is resting in bed, alert and oriented x 4, VSS, 4L O2 NC. Telemetry in place, NSR. Assessment completed, medications provided, no further needs at this time. Call ligth within reach.
[2021-05-14 20:11] VITALS: BP 92/72; PULSE 86; TEMP 97.9
[2021-05-15 00:27] VITALS: BP 121/63; PULSE 52; TEMP 97.6
[2021-05-15 04:04] VITALS: BP 129/59; PULSE 54; TEMP 97.7
--- NOTE | 2021-05-15 06:29 | NUR ---
Pt had an uneventful night. Continues at 4L O2 NC. All needs met. Report will be given to day RN.
[2021-05-15 08:29] VITALS: BP 124/67; PULSE 54; TEMP 97.9
--- NOTE | 2021-05-15 10:35 | NUR ---
Follow-up visit; Patient thanked for keeping him in her prayers.
[2021-05-15 12:12] VITALS: BP 104/70; PULSE 65; TEMP 97.5
--- NOTE | 2021-05-15 13:41 | NUR ---
The patient's oxygen needs are down to 3 liters. JENNIFER staffed with the PA. The patient will no longer require [facility]. The patient may be able to discharge in a day or two. JENNIFER met with the patient and his , Peggy, to update and review discharge plan. PT/OT are recommending home health vs outpatient therapy. JENNIFER discussed this with the patient and his . The patient and his would prefer to return home and would be interested in home health. They chose [facility]. JENNIFER attempted to contact Brianne at [facility]. JENNIFER left her a voicemail and faxed over the referral. Awaiting screen.
--- NOTE | 2021-05-15 13:51 | NUR ---
Brianne, at [facility], reports that they are able to accept the patient for services.
[2021-05-15 16:55] VITALS: BP 108/51; PULSE 79; TEMP 98.1
--- NOTE | 2021-05-15 19:50 | NUR ---
Patient is resting in bed watching TV. Alert and oriented x 4, VSS, hard hearing. Denies pain, nausea, vomiting, SOB. 2L O2 NC. Telemetry repositioned, NSR. Assessment completed, medicatios provided. No further needs at this time. Call light within reach.
[2021-05-15 22:00] VITALS: BP 118/88; PULSE 63; TEMP 97.3
[2021-05-16 00:21] VITALS: BP 123/67; PULSE 57; TEMP 97.9
[2021-05-16 04:16] VITALS: BP 111/73; PULSE 56; TEMP 98.1
--- NOTE | 2021-05-16 06:25 | NUR ---
Patient is at 2L O2 NC. Uneventful night. All needs met. Report will be given to day RN.
[2021-05-16 08:11] VITALS: BP 112/56; PULSE 76; TEMP 97.9
[2021-05-16] MEDS ORDERED: MUCUS RELIEF400 M1 PO (10:25)
[2021-05-16 11:13] VITALS: BP 123/61; PULSE 77; TEMP 97.4
[2021-05-16] MEDS ORDERED: PREDNISONE20 MG PO (11:58)
[2021-05-16] MEDS ORDERED: HCTZ12.5TAB PO (12:13)
--- NOTE | 2021-05-16 13:46 | NUR ---
SW attended clinical rounds. The patient is ready to discharge today. An exercise oximetry was ordered. RT notified JNENIFER that the patient qualified for 3 liters of oxygen. SW met with the patient. The patient's , Peggy, was on speaker phone. SW updated them on the need for home oxygen and informed them of the local DME companies. The patient and his would like to use [employer]. SW presented and read the IM form outloud to the patient. The patient verbalized understanding and signed the form. SW provided him with a copy. SW contacted and faxed the oxygen order to Morelia at [employer]. Morelia reports that they are waiting on a box truck driver to bring the portable oxygen to the patient's room. They will then deliver the concentrator and the rest of the equipment to the patient's home and go over the equipment with the . [facility] reports that if the patient has not met his deductible yet, that they will have an [id number] cost around $130-$140 a month and they would require payment. JENNIFER updated the . His reports that they are able to pay for the [id number] cost. Awaiting delivery of oxygen. The patient is to discharge back home with his today, 05/16, with home health services for prison/PT/OT from [facility]. SW notified and faxed orders to Brianne at [facility]. No additional needs at this time.
--- NOTE | 2021-05-16 16:21 | NUR ---
PT MET CRITERIA FOR DISCHARGE, VSS. [facility] DELIVERED HOME O2 SYSTEM. IV REMOVED WITHOUT COMPLICATIONS, CATHETER INTACT. DISCHARGE INSTRUCTIONS REVIEWED, PT VERBALIZED UNDERSTANDING. PT AWARE OF F/U APPT AND PRESCRIPTIONS TO [employer] AND [employer] DELIVERY SPECIALIST. PT DC VIA WHEELCHAIR ACCOMPANIED BY SLEEPING CAR SERVICE ATTENDANT.
== END 2021-05-16 16:24 | disposition home health service (06) | DRG 177 ==
LOC: MEDICAL 17:57 → ICU 05-02 13:00 → MEDICAL 05-02 13:00 → ICU 05-02 13:00 → MEDICAL 05-05 18:34 → ICU 05-05 18:38 → MEDICAL 05-05 18:38
PROVIDERS: Internal Medicine; Internal Medicine Pulmonary Disease; Physician Assistant; Student in an Organized Health Care Education/Training Program; ADMIT Internal Medicine
PROC: XW033E5 Introduction of Remdesivir Anti-infective into Peripheral Vein, Percutaneous Approach, New Technology Group 5 (ICD-10-PCS; principal; 2021-04-28)
PROC: 3E0DX3Z Introduction of Anti-inflammatory into Mouth and Pharynx, External Approach (ICD-10-PCS; 2021-04-28)
PROC: 5A09357 Assistance with Respiratory Ventilation, Less than 24 Consecutive Hours, Continuous Positive Airway Pressure (ICD-10-PCS; 2021-05-05)
DX: U07.1 COVID-19 (principal); J12.82 Pneumonia due to coronavirus disease 2019; J96.01 Acute respiratory failure with hypoxia; N17.9 Acute kidney failure, unspecified; D84.9 Immunodeficiency, unspecified; E87.2 Acidosis; E87.6 Hypokalemia; E03.9 Hypothyroidism, unspecified; K21.9 Gastro-esophageal reflux disease without esophagitis; Z66 Do not resuscitate; I10 Essential (primary) hypertension; M13.80 Other specified arthritis, unspecified site; F32.A Depression, unspecified; E83.42 Hypomagnesemia; R00.1 Bradycardia, unspecified; G47.00 Insomnia, unspecified; H91.90 Unspecified hearing loss, unspecified ear; E78.5 Hyperlipidemia, unspecified; Z23 Encounter for immunization; Z79.82 Long term (current) use of aspirin; Z79.891 Long term (current) use of opiate analgesic; Z79.890 Hormone replacement therapy; Z96.641 Presence of right artificial hip joint
CPT/HCPCS: 99223-AI; 99232-AI; 99233-AI; 99239; J0696; J1100; J1644; J1650; J2543; J3475; J3480; J7030; J7050; J8540; Q9967

== ENCOUNTER 2022-06-05 06:52 | Day surgery (SDC) | payer MEDICARE, BC ==
[~2022-06-05] VITALS: Wt 93.7 kg
[2022-06-05] VITALS (12 sets, daily range): BP systolic 118–154; BP diastolic 61–85; PULSE 41–60; TEMP 97.5–98.2
[~2022-06-05 06:52] MED LIST changes: +ABILIFY2 MG PO; +HCTZ12.5TAB PO; +LEXAPRO 5MG5 MG PO; +LEXAPRO20 MG PO; +METROCREAM CREA45 GM TP; +MUCUS RELIEF400 M1 PO; +PREDNISONE20 MG PO; +REMERON 15M15 MG/TA1 PO; +REVATIO20 MG PO
[2022-06-05] MEDS ORDERED: DESYREL DIVIDO150 M1 PO (07:53)
[2022-06-05] MEDS ORDERED: REVATIO20 MG PO (07:54)
[2022-06-05] MEDS ORDERED: MULTI VITAMINS1 TAB PO (07:57)
[2022-06-05] MEDS ORDERED: LEXAPRO 10MG10 MG PO (07:57)
[2022-06-05] MEDS ORDERED: VOLTAREN GEL 1%1 TU TP (07:58)
[2022-06-05] MEDS ORDERED: PRESERVISION1 SGL PO (07:59)
[2022-06-05] MEDS ORDERED: ZYBAN150 M1 (07:59)
[2022-06-05 08:05] LABS: BASO % 0.2 % (0.0-2.0); EOS % 0.6 % (0.0-4.0); GRAN # 3.7 K/mm3 (1.4-6.5); GRAN % 59.3 % (42.2-75.2); HEMATOCRIT 48.8 % (42.0-52.0); HEMOGLOBIN 16.6 g/dl (13.5-18.0); LYMPH # 1.9 K/mm3 (1.2-3.4); LYMPH % 29.7 % (20.0-51.0); MEAN CELL VOLUME 95 fl (80.0-100.0); MEAN CORPUSCULAR HEMOGLOBIN 32 pg (27-31); MEAN CORPUSCULAR HGB CONC 34 g/dl (33.0-37.0); MEAN PLATELET VOLUME 10.1 fl (7.4-10.4); MONO # 0.6 K/mm3 (0.1-0.6); MONO % 9.9 % (1.7-9.3); PLATELET COUNT 171 K/mm3 (130-400); RED BLOOD COUNT 5.12 M/mm3 (4.20-5.60); REDCELL DISTRIBUTION WIDTH-CV 13.4 % (11.5-14.5)
[2022-06-05 08:18] LABS: CALCIUM 8.7 mg/dL (8.4-10.2); CREATININE, serum 1.23 mg/dL (0.72-1.25); POTASSIUM 4.1 mmol/L (3.5-4.5)
[2022-06-05 08:19] LABS: INR 1.1 (0.8-3.0); PROTHROMBIN TIME 12.5 SECONDS (9.7-12.8)
--- NOTE | 2022-06-05 09:27 | NUR ---
SEE MERGE FOR ALL MEDICATIONS, VITALS INTERVENTIONS AND ETCO2.
--- NOTE | 2022-06-05 12:47 | NUR ---
PATIENT ALERT AND ORIETNED X4. ARRIVED FROM THE POSTAL INSPECTOR. DRESSING TO LEFT UPPER CHEST WITH STERILE GAUZE, AND PAPER TAPE. ICE APPLIED TO AREA. IV FLUIDS RUNNING AT 75ML/HR. ON HEART HEALTHY DIET. IV TO LEFT FOREARM. POST OP VITALS BEING DONE.
[2022-06-05] MEDS ORDERED: CEPHALEXIN500 M1 PO (12:50)
[2022-06-05] MEDS ORDERED: ZEBETA 5MG5 MG PO (12:50)
--- NOTE | 2022-06-05 20:30 | NUR ---
Initial shift assessment done- pacemaker site dry and intact, no drainage- Tele on- paced 60/min, denies need for a snack- IV fluids had been dc,d so stopped at this time, understands to call for assistance up-
[2022-06-06 03:39] VITALS: BP 128/87; PULSE 59; TEMP 97.9
--- NOTE | 2022-06-06 06:00 | NUR ---
Slept fair last night- no requests, VSS, Tele on 60/paced, Pacemaker site dry and intact- sling on left arm. Denies need for tylenol.
[2022-06-06 07:35] VITALS: BP 130/79; PULSE 59; TEMP 98
--- NOTE | 2022-06-06 08:00 | NUR ---
Patient sitting up in bed, A&Ox4. VSS. IV CDI. Denies pain and discomfort. LF chest incision CDI. LF arm in sling. Call light within reach.
[2022-06-06 11:17] VITALS: BP 129/81; PULSE 72; TEMP 98
--- NOTE | 2022-06-06 13:00 | NUR ---
Discharge paperwork reviewed with the patient and at the bedside. Patient verbalized an understanding to follow doctors orders. IV removed, tip intact. Gauze and coban applied. Patient ambulated independently to awaiting vehicle with personal belonging. No further needs expressed.
== END 2022-06-06 13:07 | disposition home or self-care (01) ==
LOC: COL.CAR 06:52 → MEDICAL 11:10 → COL.CAR 06-06 13:07
PROVIDERS: Internal Medicine Cardiovascular Disease
DX: I49.5 Sick sinus syndrome (principal); I25.10 Atherosclerotic heart disease of native coronary artery without angina pectoris; E78.2 Mixed hyperlipidemia; Z86.16 Personal history of COVID-19; Z79.82 Long term (current) use of aspirin; Z79.899 Other long term (current) drug therapy
CPT/HCPCS: OP; C1785; C1894; C1898; J0690; J2250; J3010; J7030; Q9967

== ENCOUNTER → 2023-08-17 | Outpatient (CLI) | payer MEDICARE, BC ==
[~2023-08-17] MED LIST changes: +DESYREL DIVIDO150 M1 PO; +LEXAPRO 10MG10 MG PO; +MULTI VITAMINS1 TAB PO; +PRESERVISION1 SGL PO; +VOLTAREN GEL 1%1 TU TP; +ZEBETA 5MG5 MG PO; +ZYBAN150 M1
== END ==
LOC: COL.RAD 08:43
DX: G93.89 Other specified disorders of brain (principal); G31.9 Degenerative disease of nervous system, unspecified; I67.89 Other cerebrovascular disease

== ENCOUNTER → 2023-09-07 | Outpatient (RCR) | payer MEDICARE, BC | END | disposition home or self-care (01) | LOC: COL.CR | DX: J84.10 Pulmonary fibrosis, unspecified (principal) | CPT/HCPCS: G0238; G0239 ==